=== PATIENT | female | born 1970 | race Caucasian/White ===

== ENCOUNTER 2019-11-20 00:14 | Emergency (ER) | payer OTHER, SELFPAY ==
[2019-11-19 23:59] VITALS: BP 112/71; PULSE 147; RESP 20; TEMP 36.5; O2SAT 95
[2019-11-20] VITALS (17 sets, daily range): BP systolic 109–166; BP diastolic 72–86; PULSE 120–155; RESP 15–27; O2SAT 98–100
--- NOTE | ~2019-11-20 | XR_ITS ---
EXAMINATION: XR chest ET placement DATE: 11/20/2019 02:42 INDICATION: Endotracheal tube placement TECHNIQUE: frontal view of the chest was obtained. COMPARISON: Chest radiograph dated 11/20/2019 at 12:10 AM FINDINGS: Endotracheal tube tip 2.6 cm above the benny. Nasogastric tube with proximal side-port in the stomac h and distal tip collimated beyond the inferior margin of the [id number]. Lung volumes are small but clear with no focal airspace opacities, pleural effusion, pulmonary edema or pneumothorax. The cardiomediastinal silhouette is normal. Mildly displaced posterior left ninth an d 12th ribs. IMPRESSION: 1. Endotracheal and nasogastric tubes in expected position. 2. Small lung volumes with no pneumothorax or other cardiopulmonary disease. 3. Posterior left ninth and 12th rib fractures. Reviewed, dictated and finalized at location A.
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
[2019-11-20] MEDS: SODIUM CHLORIDE 0.9% IV 1,000 ML 999 ML IV CONT (00:24)
[2019-11-20] MEDS: HALOPERIDOL LACTATE 5 MG/ML VIAL (00:24)
--- NOTE | 2019-11-20 00:30 | PC.NURSE ---
Patient's boyfriends number was provided by [employer], Will (boyfriend) was notified of patient's arrival.
[2019-11-20 01:00] LABS: Basophils Absolute Auto 0.1 K/mm3 (0.0-0.1); Basophils Percent Auto 0.5 % (0.2-1.2); Eosinophils Absolute Auto 0.2 K/mm3 (0-0.3); Eosinophils Percent Auto 0.9 % (0-4.4); Hematocrit 42.3 % (37.0-47.0); Immature Granulocyte Absolute 0.23 K/mm3 (0.00-0.031); Immature Granulocyte Percent A 1.4 % (0-0.5); Lymphocytes Absolute Auto 2.46 K/mm3 (0.9-3.2); Lymphocytes Percent Auto 14.8 % (18.3-44.2); Mean Corpuscular HGB Conc 33.1 g/dl (32-36); Mean Corpuscular Hemoglobin 30.6 pg (26-34); Mean Corpuscular Volume 92.6 fl (80-100); Mean Platelet Volume 10.9 fl (7.4-10.4); Monocytes Absolute Auto 0.9 K/mm3 (0.1-0.6); Monocytes Percent Auto 5.4 % (2.6-8.5); Neutrophils Absolute Auto 12.8 K/mm3 (1.3-6.7); Platelet Count Result 288 k/mm3 (150-375); Red Blood Count 4.57 M/mm3 (4.2-5.4); Red Cell Distribution Width 12.4 % (11.5-14.5); White Blood Count 16.6 K/mm3 (4.5-10.0)
[2019-11-20 01:04] LABS: Add Urine Microscopic? YES; Appearance Urine Clear (Clear); Bilirubin Urine Negative (Negative); Blood Urine 2+ (Negative); Color Urine Light Yellow (Yellow); Glucose Urine UA 3+ mg/dL (Negative); Ketones Urine Negative (Negative); Leukocyte Esterase Ur Negative LEU/UL (Negative); Nitrate Urine Negative (Negative); Protein Urine Negative (Negative); RBC Urine 0-2 /hpf (0-2); Squamous Epithelial Cell Urine Rare /hpf (Few); Urobilinogen Urine Negative mg/dL (<2.0); WBC Urine 0-3 /hpf
--- NOTE | 2019-11-20 01:08 | PC.NURSE ---
Unable to obtain past medications, medical history, or allergies due to patient's history.
[2019-11-20 01:10] LABS: Partial Thromboplastin Time 29.1 SECONDS (22.3-36.8)
[2019-11-20 01:14] LABS: Ethanol 211 mg/dL (<10)
[2019-11-20 01:23] LABS: Alanine Aminotransferase 48 U/L (4-35); Albumin Level 4.1 g/dL (3.5-5.1); Alkaline Phosphatase 61 U/L (38-126); Anion Gap 17 mmol/L (8-16); Aspartate Amino Transferase 84 U/L (14-36); Bilirubin,Total 0.1 mg/dL (0.2-1.3); Blood Urea Nitrogen 10 mg/dL (7-17); Calcium 8.5 mg/dL (8.4-10.2); Carbon Dioxide 15 mmol/L (22-30); Chloride 108 mmol/L (98-107); Estimated Glomerular Filt Rate > 60; Glucose 192 mg/dL (65-105); Lipase 213 U/L (23-300); Potassium 3.6 mmol/L (3.4-5.0); Sodium 140 mmol/L (137-145)
[2019-11-20 01:25] LABS: Amphetamine Screen Urine Negative (Negative); Barbiturate Screen Urine Negative (Negative); Benzodiazepines Screen Urine Negative (Negative); Cannabinoid Screen Urine Negative (Negative); Cocaine Screen Urine Negative (Negative); Methadone Screen Urine Negative (Negative); Opiate Screen Urine Negative (Negative); Phencyclidine Screen Urine Negative (Negative)
[2019-11-20 01:26] LABS: INR 1.1; Prothrombin Time 14.1 Seconds (11.1-14.7)
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
--- NOTE | 2019-11-20 02:01 | PC.NURSE ---
EDP at bedside, vitals before intubation 145 HR, 98% on 2L NC, 19 RR, and 147/79, normal saline still running, patient preoxygenated by EDP 20mg Etomidate IV push given at 0205 100mg Succs IV push given at 0205 vitals after sedation: 133HR 95% on RA while EDP attempts intubation size 7.5 ET tube placed tube marked at 22 at the teeth lung sounds equal and bilateral chest rise and fall, positive color change Propofol drip [facility] at [facility]. Size 16F de paz placed at this time.
[2019-11-20] MEDS: PROPOFOL IV EMULSION 100 ML 10 MG (02:14)
--- NOTE | 2019-11-20 03:00 | PC.NURSE ---
Patient's shorts and smart watch were found on patient on arrival to ED, both were sent to [facility] with patient.
--- NOTE | 2019-11-20 03:00 | PC.NURSE ---
EMS left ER with IV Versed and Fentanyl infusions during transport. Propofol infusion was stopped and wasted prior to patient leaving with EMS.
== END 2019-11-20 02:57 | disposition short-term general hospital (02) ==
PROVIDERS: Emergency Provider Emergency Medicine
DX: S06.6X9A Traumatic subarachnoid hemorrhage with loss of consciousness of unspecified duration, initial encounter (principal); S22.42XA Multiple fractures of ribs, left side, initial encounter for closed fracture; S32.019A Unspecified fracture of first lumbar vertebra, initial encounter for closed fracture; S32.029A Unspecified fracture of second lumbar vertebra, initial encounter for closed fracture; V49.9XXA Car occupant (driver) (passenger) injured in unspecified traffic accident, initial encounter
CPT/HCPCS: 31500; 36415; 51701; 51702; 70450; 70486; 71045; 71260; 72125; 72129; 72132; 74177; 80053; 80307; 81001; 83690; 85025; 85610; 85730; 96365; 96372; 96375; 99285; J0330; J1630; J2060; J2250; J2704; J3010; J7030; L0140; Q9967